=== PATIENT | male | born 1970 | race American Indian/Alaskan Native ===

== ENCOUNTER 2018-05-29 23:49 | Observation (INO) | payer OTHER ==
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
[2018-05-30] MEDS ORDERED: HYDROmorphone 2 MG/ML SDV IV ONE (00:54)
[2018-05-30] MEDS ORDERED: Lactated Ringers 1,000 ML IV ONE (00:54)
[2018-05-30] MEDS ORDERED: Propofol 200 MG/20 ML SDV IV ONE (00:54)
[2018-05-30] MEDS ORDERED: fentaNYL 100 MCG/2 ML SDV IV ONE (00:54)
[2018-05-30] MEDS ORDERED: Ondansetron 4 MG/2 ML SDV IVPUSH ONE (00:54)
[2018-05-30] MEDS ORDERED: Midazolam 1 MG/ML 2 ML SDV IV ONE (00:54)
[2018-05-30] MEDS ORDERED: Succinylcholine 200 MG/10 ML MDV IV ONE (00:54)
[2018-05-30] MEDS ORDERED: Ketorolac 30 MG/ML SDV IVPUSH ONE (00:54)
[2018-05-30] MEDS ORDERED: Rocuronium 50 MG/5 ML Vial IV ONE (00:54)
[2018-05-30] MEDS ORDERED: Sodium Chloride 0.9% 10 ML Syringe FLUSH PRN (00:56)
[2018-05-30] MEDS ORDERED: Diphtheria,Pertussis(Acell),Tetanus Vaccine 0.5 ML SDV IM ONE (00:58)
[2018-05-30] MEDS: Lactated Ringers 1,000 ML IV SCH ×2 (02:09→10:04)
[2018-05-30] MEDS: Ketorolac 30 MG/ML SDV IVPUSH PRN ×2 (02:13→08:18)
[2018-05-30] MEDS ORDERED: ceFAZolin 2 GM in Premix Bag 1 BAG IV ONE (10:51)
--- NOTE | 2018-05-30 11:04 | CR ---
INDICATION: Left posterior chest pain with breathing. CHEST: AP upright view of the chest was obtained 05/30/18 - no comparisons. The heart did not appear enlarged, allowing for relatively poor inspiration and AP positioning. Minimal calcification is suggested in the arch of the aorta. An active infiltrate or effusion was not identified. There is some linear density at the left lower lateral lung field with some lateral pleural thickening bilaterally. These findings may be on the basis of fibrosis or possibly some linear atelectasis on the left. No consolidating pneumonia or effusion was seen. IMPRESSION: No definite acute process but cannot exclude minimal linear atelectasis at the left lower lung field. MTDD
--- NOTE | 2018-05-30 11:09 | CR ---
INDICATION: Pain after a fall. LEFT WRIST: Three views of the left wrist revealed a fairly severely comminuted distal radial fracture fragment, Colles type, with anterior angulation at the fracture site, producing dorsal angulation of the radial joint surface of significant degree. Associated, is an ulnar styloid fracture with medial offset of the styloid fracture fragment of approximately 5 mm. No other bone or joint abnormality was identified. IMPRESSION: Colles fracture with fairly severely comminuted radial fracture lines extending through the joint surface with significant dorsal angulation of the radial joint surface. MTDD
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
[2018-05-30] MEDS ORDERED: Bupivacaine 0.5% 30 ML SDV ONE (12:47)
[2018-05-30] MEDS ORDERED: Morphine 2 MG/ML Syringe IVPUSH PRN (12:59)
[2018-05-30] MEDS ORDERED: Ondansetron 4 MG/2 ML SDV IVPUSH PRN (12:59)
--- NOTE | 2018-05-30 13:05 | PCM.DCSUM1 ---
Discharge Summary - Hospital Course HPI Initial Comments: 47 yo male left distal radius fracture, closed Diagnosis: Stroke: No - Discharge Data Discharge Date: 05/30/18 Discharge Disposition: Home, Self-Care 01 Condition: Stable - Discharge Diagnosis/Problem(s) (1) Closed fracture of radius and ulna SNOMED Code(s): 18087265 ICD Code: S52.90XA - UNSP FRACTURE OF UNSP FOREARM, INIT FOR CLOS FX; S52.209A - UNSP FRACTURE OF SHAFT OF UNSP ULNA, INIT FOR CLOS FX Status: Acute Current Visit: Yes Problem Details: Admit to observation for surgical managment in the am. Qualifiers: Encounter type: initial encounter Laterality: left Qualified Code(s): S52.92XA - Unspecified fracture of left forearm, initial encounter for closed fracture; S52.202A - Unspecified fracture of shaft of left ulna, initial encounter for closed fracture - Patient Summary/Data Operative Procedure(s) Performed: orif left distal radius Complications: none - Patient Instructions Diet: Usual Diet as Tolerated Activity: Apply Ice, Non Weight Bearing Driving: Do Not Drive Showering/Bathing: May Shower Showering/Bathing, Other: cover splint in shower. keep splint on until follow up Wound/Incision Care: Keep Operative Site/Wound Site Clean and Dry, Do NOT Change Dressing Notify Provider of: Fever, Increased Pain, Swelling and Redness, Drainage, Nausea and/or Vomiting - Discharge Plan *PRESCRIPTION DRUG MONITORING PROGRAM REVIEWED*: Not Applicable *COPY OF PRESCRIPTION DRUG MONITORING REPORT IN PATIENT LUCIO: Not Applicable Prescriptions/Med Rec: traMADol [Ultram] 50 mg PO Q6HR #56 tablet Home Medications: Home Meds traMADol [Ultram] 50 mg PO Q6HR #56 tablet 05/30/18 [Rx] Forms: ED Department Discharge Referrals: PCP,None [Primary Care Provider] - - Discharge Summary/Plan Comment DC Time >30 min.: No - Review of Systems General: Reports: No Symptoms HEENT: Reports: No Symptoms Pulmonary: Reports: No Symptoms Cardiovascular: Reports: No Symptoms Gastrointestinal: Reports: No Symptoms Genitourinary: Reports: No Symptoms Musculoskeletal: Reports: Arm Pain, Hand Pain, Joint Pain, Joint Swelling Skin: Reports: No Symptoms Neurological: Reports: No Symptoms Psychiatric: Reports: No Symptoms - Patient Data Vitals - Most Recent: Last Vital Signs Temp 98.7 F 05/30/18 05:30 Pulse 84 05/30/18 05:30 Resp 16 05/30/18 05:30 BP 139/90 05/30/18 05:30 Pulse Ox 96 05/30/18 05:30 Weight - Most Recent: 209 lb I&O - Last 24 hours: Intake & Output 05/29/18 05/30/18 05/30/18 22:59 06:59 14:59 Intake Total 560 Balance 560 Lab Results - Last 24 hrs: Laboratory Results - last 24 hr 05/30/18 05/30/18 05/30/18 Range/Units 01:50 01:50 01:50 WBC 13.2 H (4.5-12.0) X10-3/uL RBC 5.32 (4.30-5.75) x10(6)uL Hgb 15.9 (13.5-17.8) g/dL Hct 48.3 (30.0-51.3) % MCV 90.7 (80-96) fL MCH 29.9 (27.7-33.6) pg MCHC 33.0 (32.2-35.4) g/dL RDW 12.6 (11.5-15.5) % Plt Count 296 (125-369) X10(3)uL MPV 9.1 (7.4-10.4) fL Add Manual Diff Yes Neutrophils % (Manual) 90 H (46-82) % Band Neutrophils % 1 (0-6) % Lymphocytes % (Manual) 7 L (13-37) % Monocytes % (Manual) 2 L (4-12) % Sodium 143 (135-145) mmol/L Potassium 3.7 (3.5-5.3) mmol/L Chloride 105 (100-110) mmol/L Carbon Dioxide 25 (21-32) mmol/L BUN 10 (7-18) mg/dL Creatinine 1.1 (0.70-1.30) mg/dL Est Cr Clr Drug Dosing TNP Estimated GFR (MDRD) > 60 (>60) BUN/Creatinine Ratio 9.1 (9-20) Glucose 126 H (80-116) mg/dL Calcium 8.7 (8.6-10.2) mg/dL Urine Color (YELLOW) Urine Appearance (CLEAR) Urine pH (5.0-6.5) Ur Specific Williams (1.010-1.025) Urine Protein (NEGATIVE) mg/dL Urine Glucose (UA) (NORMAL) mg/dL Urine Ketones (NEGATIVE) mg/dL Urine Occult Blood (NEGATIVE) Urine Nitrite (NEGATIVE) Urine Bilirubin (NEGATIVE) Urine Urobilinogen (NEGATIVE) mg/dL Ur Leukocyte Esterase (NEGATIVE) Urine RBC (0-5) Urine WBC (0-5) Ur Squamous Epith Cells (NS,R,O) Urine Bacteria (NS) Urine Opiates Screen (NEGATIVE) Ur Oxycodone Screen (NEGATIVE) Ur Propoxyphene Screen (NEGATIVE) Ur Barbituates Screen (NEGATIVE) Ur Tricyclics Screen (NEGATIVE) Ur Phencyclidine Scrn (NEGATIVE) Ur Amphetamine Screen (NEGATIVE) Urine MDMA Screen (NEGATIVE) U Benzodiazepines Scrn (NEGATIVE) U Cocaine Metab Screen (NEGATIVE) U Marijuana (THC) Screen (NEGATIVE) Ethyl Alcohol 0.16 H* (<0.03) % 05/30/18 05/30/18 Range/Units 02:00 02:00 WBC (4.5-12.0) X10-3/uL RBC (4.30-5.75) x10(6)uL Hgb (13.5-17.8) g/dL Hct (30.0-51.3) % MCV (80-96) fL MCH (27.7-33.6) pg MCHC (32.2-35.4) g/dL RDW (11.5-15.5) % Plt Count (125-369) X10(3)uL MPV (7.4-10.4) fL Add Manual Diff Neutrophils % (Manual) (46-82) % Band Neutrophils % (0-6) % Lymphocytes % (Manual) (13-37) % Monocytes % (Manual) (4-12) % Sodium (135-145) mmol/L Potassium (3.5-5.3) mmol/L Chloride (100-110) mmol/L Carbon Dioxide (21-32) mmol/L BUN (7-18) mg/dL Creatinine (0.70-1.30) mg/dL Est Cr Clr Drug Dosing Estimated GFR (MDRD) (>60) BUN/Creatinine Ratio (9-20) Glucose (80-116) mg/dL Calcium (8.6-10.2) mg/dL Urine Color Yellow (YELLOW) Urine Appearance Clear (CLEAR) Urine pH 5.0 (5.0-6.5) Ur Specific Williams 1.015 (1.010-1.025) Urine Protein Negative (NEGATIVE) mg/dL Urine Glucose (UA) Normal (NORMAL) mg/dL Urine Ketones Negative (NEGATIVE) mg/dL Urine Occult Blood Negative (NEGATIVE) Urine Nitrite Negative (NEGATIVE) Urine Bilirubin Negative (NEGATIVE) Urine Urobilinogen Normal (NEGATIVE) mg/dL Ur Leukocyte Esterase Negative (NEGATIVE) Urine RBC 0-5 (0-5) Urine WBC 0-5 (0-5) Ur Squamous Epith Cells Few H (NS,R,O) Urine Bacteria Few H (NS) Urine Opiates Screen Negative (NEGATIVE) Ur Oxycodone Screen Negative (NEGATIVE) Ur Propoxyphene Screen Negative (NEGATIVE) Ur Barbituates Screen Negative (NEGATIVE) Ur Tricyclics Screen Negative (NEGATIVE) Ur Phencyclidine Scrn Negative (NEGATIVE) Ur Amphetamine Screen Negative (NEGATIVE) Urine MDMA Screen Negative (NEGATIVE) U Benzodiazepines Scrn Negative (NEGATIVE) U Cocaine Metab Screen Negative (NEGATIVE) U Marijuana (THC) Screen Negative (NEGATIVE) Ethyl Alcohol (<0.03) % Med Orders - Current: Current Medications Acetaminophen (Tylenol) 650 mg PO Q4H PRN PRN Reason: Pain (Mild 1-3)/fever Lactated Ringer's (Ringers, Lactated) 1,000 mls @ 125 mls/hr IV ASDIRECTED [facility] Last Admin: 05/30/18 10:04 Dose: 125 mls/hr Ketorolac Tromethamine (Toradol) 30 mg IVPUSH Q6H PRN PRN Reason: Pain (moderate 4-6) Last Admin: 05/30/18 08:18 Dose: 30 mg Morphine Sulfate (Morphine) 1 mg IVPUSH Q2H PRN PRN Reason: pain Ondansetron HCl (Zofran) 8 mg IVPUSH Q4H PRN PRN Reason: Nausea/Vomiting Sodium Chloride (Saline Flush) 10 ml FLUSH ASDIRECTED PRN PRN Reason: Keep Vein Open Tramadol HCl (Ultram) 100 mg PO Q4H PRN PRN Reason: Pain Discontinued Medications Bupivacaine HCl (Marcaine 0.5%) 10 ml .XX .STK-MED ONE Stop: 05/30/18 12:48 Last Admin: 05/30/18 12:47 Dose: 10 ml Diphtheria/Tetanus/Acell Pertussis (Adacel) 0.5 ml IM .ONCE ONE Stop: 05/30/18 00:59 Last Admin: 05/30/18 01:04 Dose: 0.5 ml Cefazolin Sodium/Dextrose 2 gm (/ Premix) 50 mls @ 100 mls/hr IV ONETIME ONE Stop: 05/30/18 11:20 - Exam General: Reports: Alert, Oriented, Cooperative, No Acute Distress HEENT: Reports: Pupils Equal, Pupils Reactive, Mucous Membr. Moist/[place] Neck: Reports: Supple, Trachea Midline Lungs: Reports: Normal Respiratory Effort GI/Abdominal Exam: No Distention Extremities: Joint Swelling, Arm Pain, Limited Range of Motion Skin: Reports: Warm, Dry, Intact Wound/Incisions: Reports: Healing Well, Dressing Dry and Intact, No Drainage Neurological: Reports: No New Focal Deficit Psy/Mental Status: Reports: Alert, Normal Affect, Normal Mood Discharge Operative/Procedures - Procedures Performed Operations: orif left distal radius
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
[2018-05-30] MEDS ORDERED: Ondansetron 8 MG Tab.DIS PO PRN (17:41)
[2018-05-30] MEDS ORDERED: Ketorolac 10 MG Tab PO PRN (17:43)
[2018-05-30] MEDS: traMADol 50 MG Tab PO PRN ×2 (18:03→22:14)
[2018-05-30] MEDS: Acetaminophen 325 MG Tab PO PRN ×2 (18:10→22:13)
[2018-05-31] MEDS: Acetaminophen 325 MG Tab PO PRN (08:20)
[2018-05-31] MEDS ORDERED: Famotidine 20 MG Tab PO ONE (08:49)
[2018-05-31] MEDS: traMADol 50 MG Tab PO PRN (09:20)
--- NOTE | 2018-05-31 09:21 | CR ---
INDICATION: Intraoperative fixation of distal radial fracture fragments. C-ARM FLUOROSCOPY UP TO 1 HOUR IN OR: 0.2 minutes C-arm fluoroscopy time was utilized in OR for a total cumulative dose of 0.223 mGy during placement of a plate with multiple screws, fixing comminuted distal radial fracture fragments, which now appear to be in satisfactory position and alignment. A definite complicating process was not identified. MTDD
[2018-05-31 09:42] VITALS: BP 145/99
== END 2018-05-31 13:00 | disposition home or self-care (01) ==
LOC: FB.ED 23:49 → FB.MS 05-30 00:53
PROVIDERS: ADMIT Family Medicine; ATTEND Orthopaedic Surgery
DX: S52.572A Other intraarticular fracture of lower end of left radius, initial encounter for closed fracture (principal); S52.612A Displaced fracture of left ulna styloid process, initial encounter for closed fracture; F17.210 Nicotine dependence, cigarettes, uncomplicated; W10.9XXA Fall (on) (from) unspecified stairs and steps, initial encounter
CPT/HCPCS: 25608; 36415; 71045; 73110; 76000; 80048; 80305; 81001; 85025; 90471; 90715; 94150; 99284; A9270; G0480; J0330; J0690; J1170; J1885; J2250; J2405; J2704; J3010; J3490; J7120; 96361; 96365; 96375; 96376; G0378

== ENCOUNTER 2019-06-24 21:25 | Emergency (ER) | payer OTHER ==
[2019-06-24] MEDS ORDERED: Ketorolac 60 MG/2 ML SDV IM ONE (21:45)
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
[2019-06-24] MEDS ORDERED: amLODIPine 10 MG Tab ONE (22:12)
[2019-06-24 22:59] VITALS: BP 165/109; PULSE 75
[2019-06-25] MEDS ORDERED: amLODIPine 10 MG Tab PO SCH (21:00)
[2019-06-25] MEDS ORDERED: amLODIPine 10 MG Tab PO ONE (22:06)
== END 2019-06-24 22:54 | disposition home or self-care (01) ==
LOC: FB.ED 21:25
DX: M94.0 Chondrocostal junction syndrome [Tietze] (principal); I10 Essential (primary) hypertension
CPT/HCPCS: 93005; 96372; 99284-25; A9270-GY; J1885

== ENCOUNTER 2021-07-16 03:52 | Emergency (ER) | payer OTHER ==
[2021-07-16] MEDS ORDERED: Acetaminophen/HYDROcodone 325-5 MG Tab PO ONE (03:53)
[2021-07-16] MEDS ORDERED: Lidocaine 2% 20 ML MDV INFILT ONE (03:53)
[2021-07-16 04:43] VITALS: BP 172/108; PULSE 62
[2021-07-16] MEDS: amLODIPine 5 MG Tab PO ONE (06:02)
== END 2021-07-16 06:15 | disposition home or self-care (01) ==
LOC: FB.ED 03:52
DX: S62.631A Displaced fracture of distal phalanx of left index finger, initial encounter for closed fracture (principal); Z90.49 Acquired absence of other specified parts of digestive tract; Z79.899 Other long term (current) drug therapy; W23.1XXA Caught, crushed, jammed, or pinched between stationary objects, initial encounter; Y99.0 Civilian activity done for income or pay
CPT/HCPCS: 12001; 73140-F1; 99281; 99283-25; A9270-GY